=== PATIENT | male | born 1960 | race Caucasian/White ===

== ENCOUNTER 2020-07-27 04:52 | Emergency (ER) | payer OTHER, SELFPAY ==
[~2020-07-27] VITALS: Ht 172.7 cm; Wt 102.1 kg
[2020-07-27 05:37] VITALS: Ht 172.7 cm; Wt 102.1 kg
[2020-07-27 06:44] LABS: BASOPHIL % 1.2 % (0.2-1.5); PLATELET COUNT 166 x10^3mcL (152-348); RED CELL DISTRIBUTION WIDTH 14.2 % (12.1-16.2)
[2020-07-27 07:15] LABS: CALCIUM 8.6 mg/dL (8.5-10.1); CARBON DIOXIDE 25.6 mmol/L (21-32); CHLORIDE SERUM 105 mmol/L (98-107); CREATININE SERUM 0.8 mg/dL (0.7-1.3); GFR1 > 60 mL/min; GLUCOSE SERUM 74 mg/dL (74-106); POTASSIUM SERUM 3.8 mmol/L (3.5-5.1); SODIUM SERUM 137 mmol/L (136-145)
[2020-07-27 07:27] LABS: ALKALINE PHOSPHATASE 85 U/L (46-116); ALT/SGPT 40 U/L (16-63); AST/SGOT 59 U/L (15-37); BILIRUBIN TOTAL 1.1 mg/dL (0.20-1.00); C REACTIVE PROTEIN 4.1 mg/dL (<=0.9); LACTIC DEHYDROGENASE (LDH) 434 U/L (100-190)
[2020-07-27 07:28] LABS: ALBUMIN 2.3 g/dL (3.4-5.0)
[2020-07-27 07:58] LABS: microscopic required? NO
[2020-07-27 08:22] LABS: urine erythrocyte NEGATIVE (NEGATIVE)
[2020-07-27] MEDS ORDERED: SIMVASTATIN5 M2 (08:25)
[2020-07-27] MEDS ORDERED: COU5 PO (08:25)
[2020-07-27] MEDS ORDERED: HUMALOG100 UNIT/1 SQ (08:26)
[2020-07-27] MEDS ORDERED: EFFER-K10 MEQ PO (08:26)
[2020-07-27] MEDS ORDERED: FORTAMET1000 MG PO (08:26)
[2020-07-27 09:54] VITALS: BP 129/98
== END 2020-07-27 09:54 | disposition home or self-care (01) ==
LOC: ED 04:52
PROVIDERS: Emergency Medicine
DX: R25.1 Tremor, unspecified (principal); E11.9 Type 2 diabetes mellitus without complications; Z20.828 Contact with and (suspected) exposure to other viral communicable diseases
CPT/HCPCS: 82962; 83880; 85378; 87804; U0003